=== PATIENT | female | born 1970 | race Caucasian/White ===

== ENCOUNTER 2023-02-02 06:48 | Day surgery (SDC) | payer OTHER ==
[~2023-02-02] VITALS: Ht 157.5 cm; Wt 54.0 kg
[2023-02-02] MEDS ORDERED: fentaNYL CITRATE/PF 100 MCG/2 ML AMP ONE (07:09)
[2023-02-02] MEDS ORDERED: MIDAZOLAM HCL 5 MG/5 ML VIAL ONE (07:09)
[2023-02-02 07:42] LABS: HCG,QUAL RESULT NEGATIVE (NEGATIVE)
[2023-02-02 15:34] VITALS: BP_SYST 90
== END 2023-02-02 09:45 | disposition home or self-care (01) ==
LOC: SDS 06:48 → SMU 07:33 → SDS 09:45
PROVIDERS: ATTEND Internal Medicine
DX: Z12.11 Encounter for screening for malignant neoplasm of colon (principal); E78.5 Hyperlipidemia, unspecified; Z86.010 Personal history of colon polyps; Z80.0 Family history of malignant neoplasm of digestive organs; Z20.822 Contact with and (suspected) exposure to COVID-19; Z79.899 Other long term (current) drug therapy
CPT/HCPCS: 45378; 87426; 84703; 36415; 99152; G0378; J2250; J3010